=== PATIENT | female | born 1995 | race Caucasian/White ===

== ENCOUNTER 2017-08-03 23:01 | Inpatient (IN) | payer OTHER, MEDICAID ==
[2017-08-03] MEDS ORDERED: Sodium Chloride 0.9% 1,000 ML IV ONE (23:28)
[2017-08-03] MEDS ORDERED: Morphine Sulfate 2 mg/mL 1mL Syr ONE (23:36)
[2017-08-04] MEDS ORDERED: Morphine Sulfate 2 mg/mL 1mL Syr ONE ×3 (00:13→06:17)
[2017-08-04] MEDS ORDERED: Levofloxacin 500mg/100mL 500 MG/100 ML BAG IV ONE ×2 (01:27→01:29)
--- NOTE | 2017-08-04 02:46 | ED Physician Chart ---
ED Chief Complaint/HPI - Patient Information Date Seen:: 08/03/17 Time Seen:: 23:00 Chief Complaint:: Abdominal Pain History of Present Illness:: onset x 3 days of intermittent, crampy, generalized Abd. Pain, flank pain, N/V/D ; no H/As, neck pain, C/P, SOB, cough, A/C, fever, chills, or urinary s/s Allergies:: Allergies Allergy/AdvReac Type Severity Reaction Status Date / Time iodine Allergy Verified 09/06/16 10:39 Penicillins [PCN] Allergy Verified 09/06/16 10:39 tuna Allergy Uncoded 03/31/16 21:42 Vitals:: Vital Signs - 8 hr 08/03/17 08/04/17 23:05 01:07 Temp 97.6 F 98.2 F HR 88 81 RR 19 18 BP 142/81 133/79 O2 Sat % 96 97 Historian:: Patient, Family Member Review:: Nurse's Note Reviewed ED Review of Systems - Review of Systems General/Constitutional: No fever, No chills, No weight loss, No weakness, No diaphoresis, No edema, No loss of appetite Skin: No skin lesions, No rash, No bruising Head: No headache, No light-headedness Eyes: No loss of vision, No pain, No diplopia ENT: No earache, No nasal drainage, No sore throat, No tinnitus Neck: No neck pain, No swelling, No thyromegaly, No stiffness, No mass noted Cardio Vascular: No chest pain, No palpitations, No PND, No orthopnea, No edema Pulmonary: No SOB, No cough, No sputum, No wheezing GI: Nausea, Vomiting, Diarrhea, Pain, No melena, No hematochezia, No constipation, No hematemesis G/U: No dysuria, No frequency, No hematuria Calender Wind Up Helper: No vaginal discharge, No abnormal vaginal bleed, No contraction Musculoskeletal: No bone or joint pain, No back pain, No muscle pain Endocrine: No polyuria, No polydipsia Psychiatric: No prior psych history, No depression, No anxiety, No suicidal ideation Hematopoietic: No bruising, No lymphadenopathy Allergic/Immuno: No urticaria, No angioedema Neurological: No syncope, No focal symptoms, No weakness, No paresthesia, No headache, No seizure, No dizziness, No confusion, No vertigo ED Past Medical History - Past Medical History Obtainable: Yes Past Medical History: Asthma/COPD Family History: HTN Social History: Non Smoker, No Alcohol, No Drug Use, Single, Lives With Parents Surgical History: Appendectomy Psychiatricy History: None Medication: Reviewed Family Medical History - Family Member Mother History Unknown: Yes (The patient has a family history of both asthma and renal stones.) Ethnicity: Living Status: Still Living Hx Family Hypertension: Yes (grandfather) Hx Family Diabetes: (mother) ED Physical Exam - Physical Examination General/Constitutional: Awake, Well-developed, well-nourished, Alert, No distress, GCS 15, Non-toxic appearing, Ambulatory Head: Atraumatic Eyes: Lids, conjuctiva normal, PERRL, EOMI Skin: Nl inspection, No rash, No skin lesions, No ecchymosis, Well hydrated, No lymphadenopathy ENMT: External ears, nose nl, TM canals nl, Nasal exam nl, Lips, teeth, gums nl , Oropharynx nl, Tonsils nl Neck: Nontender, Full ROM w/o pain, No JVD, No nuchal rigidity, No bruit, No mass, No stridor Respiratory: Nl effort/Exclusion, Clear to Auscultation, No Wheeze/Rhonchi/Rales Cardio Vascular: RRR, No murmur, gallop, rubs, NL S1 S2, Carotid/Femoral/Distal pulses equal bilaterally GI: No organomegaly, No hernia, Normal BS's, Nondistended, No mass/bruits, No McBurney tenderness Other GI comments:: Abdomen: Soft with diffuse tenderness, especially at LLQ and RUQ : No CVA tenderness Extremities: No tenderness or effusion, Full ROM, normal strength in all extremities, No edema, Normal digits & nails Neuro/Psych: Alert/oriented, DTR's symmetric, Normal sensory exam, Normal motor strength, Judgement/insight normal, Mood normal, Normal gait, No focal deficits Misc: Normal back, No paraspinal tenderness ED Labs/Radiology/EKG Results - Lab Results Comments:: WBC: 12.0 - Radiology Results Comments:: NAD - EKG Interpretations EKG Time:: 23:58 Rate & Rhythm: 88; NSR Comments:: non-specific st-t changes ED Septic Shock - . Is Septic Shock (SBP<90, OR Lactate>4 mmol\L) present?: No - <6hrs of presentation: Vital Signs: Vital Signs - 8 hr 08/03/17 08/04/17 23:05 01:07 Temp 97.6 F 98.2 F HR 88 81 RR 19 18 BP 142/81 133/79 O2 Sat % 96 97 ED Reassessment (Disposition) - Reassessment Reassessment Condition:: Improved - Diagnosis Diagnosis:: Abdominal Pain; Diverticulitis; UTI; Leukocytosis; Cholecystitis; Intractable Pain; Vomiting - Aftercare/Follow up Instructions Aftercare/Follow-Up Instructions:: Counseled pt regarding lab results/diagnosis & need follow up, Counseled pt & family regarding lab results/diagnosis & need follow up - Patient Disposition Discharge/Transfer:: Acute Care w/in this hosp Accepting Physician:: Dr. Sheikh Time Called:: 199 Time Responded:: 02:00 Admitted to:: Med/Surg Spoke to:: Dr. Sheikh Admitting Medical Physician:: Dr. Sheikh Condition at Disposition:: Stable, Improved
[2017-08-04 03:12] LABS: ANION GAP 13.5 (7.0-16.0); BUN - UREA NITROGEN 14 mg/dL (7-25); BUN/CREATININE RATIO 23.3; CARBON DIOXIDE 22.4 mEq/L (21.0-31.0); CHLORIDE 103 mEq/L (98-107); CREATININE - SERUM 0.6 mg/dL (0.6-1.2); GLUCOSE 103 mg/dL (70-105); POTASSIUM SERUM 3.9 mEq/L (3.5-5.1); SODIUM SERUM 135 mEq/L (136-145)
[2017-08-04 03:13] LABS: ALB/GLOB RATIO 1.2 (1.0-1.8); ALKALINE PHOSPHATASE 77 U/L (34-104); AMYLASE SERUM 32 U/L (29-103); BILIRUBIN,TOTAL 0.4 mg/dL (0.3-1.0); CALCIUM SERUM 9.6 mg/dL (8.6-10.3); LIPASE 18 U/L (11-82); SGOT 18 U/L (13-39); SGPT/ALT 22 U/L (7-52)
[2017-08-04 03:14] LABS: HEMATOCRIT 38.3 % (41.0-60); HEMOGLOBIN 12.4 gm/dL (12-16); MEAN CORPUSCULAR HEMOGLOBIN 26.3 pg (27.0-31.0); MEAN CORPUSCULAR HGB CONC 32.5 pg (28.0-36.0); PLATELET COUNT 264 Th/cmm (150-400); RED BLOOD COUNT 4.72 Mil/cmm (3.80-5.10); RED CELL DISTRIBUTION WIDTH 13.1 % (11.5-20.0)
[2017-08-04 03:15] LABS: % BASOPHILS 0.4 % (0.0-2.0); % EOSINOPHILS 3.2 % (0.0-5.0); % LYMPHOCYTES 28.3 % (20.0-50.0); % MONOCYTES 5.8 % (2.0-10.0); % NEUTROPHILS 62.3 % (40.0-80.0); MEAN PLATELET VOLUME 9.4 fl; NEUTROPHILE ABSOLUTE 7.5 Th/cmm (1.8-8.0)
[2017-08-04 03:16] LABS: URINE COLOR YELLOW
[2017-08-04 03:17] LABS: URINE BILIRUBIN NEGATIVE (NEGATIVE); URINE BLOOD NEGATIVE (NEGATIVE); URINE GLUCOSE (UA) NEGATIVE (NEGATIVE); URINE KETONE NEGATIVE (NEGATIVE); URINE PH 6.5 (4.6 - 8.0); URINE PROTEIN NEGATIVE (NEGATIVE); URINE UROBILINOGEN 0.2 E.U./dL (0.2 - 1.0)
[2017-08-04 03:18] LABS: URINE BACTERIA FEW /hpf (NONE SEEN); URINE EPITHELIAL CELLS FEW /lpf (FEW); URINE RBC 0-2 /hpf (0-5); URINE WBC 0-2 /hpf (0-5)
[2017-08-04] MEDS ORDERED: Morphine Sulfate 2 mg/mL 1mL Syr IVP PRN (03:22)
[2017-08-04] MEDS: D5-0.45NS 1,000 ML IV SCH ×2 (03:30→18:36)
[2017-08-04] MEDS ORDERED: Lidocaine 2% Gel 5 mL TP ONE (07:15)
--- NOTE | 2017-08-04 08:17 | Diagnostic Imaging Report ---
CT abdomen and pelvis without intravenous contrast Indication: Abdominal pain Comparison: CT abdomen and pelvis on 09/06/2016, Technique: Axial images were obtained from the lung bases to the bilateral proximal femurs without IV contrast. Coronal reconstructions were made. total DLP: 745, CTDI14.4 FINDINGS: Hypoventilatory and atelectatic changes of the lung bases are noted. Assessment of the solid organs is limited due to lack of IV contrast. There is diffuse fatty infiltration of the liver. No evidence of focal lesions. No radiopaque gallstones identified. No focal splenic or pancreatic lesions. No focal adrenal lesions. No evidence of hydronephrosis or nephrolithiasis. Postsurgical changes of right lower quadrant are noted with what appears to be previous appendectomy. There is mild nonspecific inflammatory change along the pelvic fat planes. No evidence of bowel obstruction. Moderate amount stool is noted. No evidence of free air or free fluid.. The osseous structures demonstrate no acute abnormalities. IMPRESSION: Postsurgical changes in right lower quadrant with what appears to be evidence of previous appendectomy. Moderate stool throughout the colon. No evidence of bowel obstruction Mild nonspecific inflammatory changes along the pelvic fat planes. Please correlate with patient's clinical findings. If indicated ultrasound follow-up may be obtained for further assessment Hepatic steatosis.
--- NOTE | 2017-08-04 08:58 | Diagnostic Imaging Report ---
Ultrasound abdomen HISTORY: Abdominal pain COMPARISON: CT abdomen and pelvis performed the same day and abdominal ultrasound on 09/06/2016 Technique: Sonography of the abdomen was performed in multiple planes. FINDINGS: The liver demonstrates increased echogenicity and measures 18 cm. No evidence of focal lesions. No evidence of gallstones or gallbladder wall thickening. The common bile duct measures 5 mm. Evaluation of pancreas is limited due to bowel gas The right kidney measures 11.6 x 4.5 cm. The Left kidney measures 11.6 x 5.7 cm. No evidence of focal lesions or hydronephrosis. The spleen measures 11.7 cm. The visualized portions of abdominal aorta within normal limits in size. IMPRESSION: No evidence of gallstones. Mild hepatomegaly with increased echogenicity which may be due to underlying fatty infiltration. No evidence of hydronephrosis.
[2017-08-04] MEDS: metroNIDAZOLE 500mg/NS 100mL 500 MG/100 ML BAG IV SCH ×2 (12:17→22:00)
--- NOTE | 2017-08-04 14:02 | History & Physical ---
ADMIT DATE: 08/04/2017 PATIENT IDENTIFICATION: A 21-year-old female. CHIEF COMPLAINT: Abdominal pain on and off for the last 1 week, got worse over 3 days. HISTORY OF PRESENT ILLNESS: A 21-year-old moderately obese female with history of fatty liver, states that she used to get pain on and off, but never had a full attention and never worked up before, states that she started to have pain at the pelvic area on the right lower quadrant, which is continues to persist and radiated to the back. She went to urgent care and she was told that she has UTI. She was given some antibiotics. According to the patient that her pain never got better and continued to get worse to the extent that she was having abdominal pain associated with nausea and she also noticed that the pain was generalized involving the entire abdomen, sometimes it located to the upper part of the abdomen, sometimes to the right upper quadrant, but she said she required substantial amount of the pain medication. The patient was worked up in the Emergency Room noted to have leukocytosis with negative CT abdomen and pelvis, but her pain was out of proportion, never had any previous hospitalizations or any drug seeking behavior. The patient was advised to be admitted for further management. PAST MEDICAL HISTORY: Remarkable for fatty liver. MEDICATIONS AT HOME: Zofran, [place], and Cipro. ALLERGIES: The patient is allergic to iodine, penicillin. SOCIAL HISTORY: She is currently employed and work for [employer]. The patient does not smoke, drink, or street drug. No alcohol use, no street drug use. FAMILY MEDICAL HISTORY: Remarkable for hypertension. 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 Last LMP was 07/12/2017. She is 4, para 1. Her young child is 3-year-old. The patient denies any abnormal menstruation. Denies any abnormal vaginal bleeding or vaginal discharge. REVIEW OF SYSTEMS: The patient denies any headache, blurred vision, double vision, dysphagia, odynophagia, runny nose, stuffy nose. Does admit fever and chills. Denies any chest pain, shortness of breath, cough. Denies any hematemesis, hematuria, hematochezia, or melena. No dysuria, no seizure or syncopal episode. PHYSICAL EXAMINATION: GENERAL: Moderately overweight female, lying in the bed without any acute distress. VITAL SIGNS: Temperature 98.2, pulse 81, respiratory rate 18, blood pressure 133/79. HEENT: Normocephalic, atraumatic. Extraocular muscles are intact. Tongue was pink and coated. Poor dentition noted. No oral lesion, no exudate. No sinus tenderness. NECK: Supple, no JVD, no hepatojugular reflex. No lymphadenopathy, thyromegaly, or carotid bruit. HEART: Both heart sounds are regular. No S3, no S4, no murmur. CHEST: Lung equal in expansion, no wheezing, no crackles. ABDOMEN: Soft, epigastric and right upper quadrant tenderness noted. Bowel sounds are present. No palpable mass. EXTREMITIES: No edema, no cyanosis, no clubbing. Peripheral pulses +2. No calf tenderness noted. NEUROLOGIC: Limited, but nonfocal. AVAILABLE DIAGNOSTIC DATA: White count 12, hemoglobin of 12.4, platelet count of 264. BUN and creatinine is 14 and 0.6. SGOT, SGPT, ALTs are normal. Troponin is less than 0.01. Urine, specific gravity is more than 1.030, otherwise unremarkable. Urine test was also normal. CT scan of the abdomen and pelvis was done in the Emergency Room, which reported patient had post-surgical changes in the right lower quadrant for previous appendectomy, moderate stool throughout the colon, no evidence of bowel obstruction, mild nonspecific inflammatory changes along the pelvic fat planes noted, otherwise unremarkable. Abdominal ultrasound was also performed in the Emergency Room, which read by radiologist as no evidence of goals stone some, mild hepatomegaly with increased echogenicity, no evidence of hydronephrosis. CLINICAL IMPRESSIONS: 1. Intermittent diffuse abdominal pain for 1 week, getting worse, associated with nausea. CT scan of the abdomen and pelvis and abdominal ultrasound consistent with some inflammatory changes in the pelvic bed and hepatosplenomegaly. The patient's pain is out of proportions, needs further evaluation. 2. History of asthma. 3. Fatty liver. PLAN: 1. Admit this patient to Med/Surg floor. 2. NPO. 3. IV fluid. 4. Symptoms management. 5. GI and General Surgery consultation. 6. Empirically IV antibiotic. 7. Follow lab. 8. Follow consult recommendation. 9. Care plan reviewed and discussed with staff. JOB# [id number]
[2017-08-04] MEDS ORDERED: Magnesium Citrate 1.75 GM/300 mL Bottle PO ONE (22:48)
--- NOTE | 2017-08-05 00:08 | Consultation ---
DATE OF CONSULTATION: 08/04/2017 SURGICAL CONSULT REFERRING PHYSICIAN: Oleg Sheikh M.D. REASON FOR CONSULTATION: Abdominal pain. Thank you for referring this patient to me. HISTORY OF PRESENT ILLNESS: This is a 21-year-old female who claims abdominal pain for the last 3 days. It is crampy and intermittent mostly in the lower abdomen. She had some nausea, but no vomiting, no diarrhea. PAST MEDICAL HISTORY: She claims that she has had urinary tract infection ____ age 4 and has been recurring. Also, 2 years ago after a , she developed multiple kidney stones, which passed spontaneously. She claims that her family has history of hyperparathyroidism. This apparently has not been checked in the past. LABORATORY STUDIES: Today, the CBC shows WBC likely elevated to 12,000. Calcium is normal at 9.6. Ultrasound of the abdomen does not show any kidney stones and CT scan of the abdomen is otherwise unremarkable except for evidence of prior appendectomy. PHYSICAL EXAMINATION: GENERAL: The patient is morbidly obese with minimal tenderness in the lower abdomen more towards the right side. PLAN: We will check PTH and TSH. GI evaluation has been done and EGD and colonoscopy is scheduled for tomorrow. We will follow with you. JOB# [id number]
[2017-08-05] MEDS: Lactulose 10 Gm/15 mL 30mL UDC PO SCH ×3 (00:49→06:46)
[2017-08-05] MEDS ORDERED: Levofloxacin 500mg/100mL 500 MG/100 ML BAG IV SCH (01:00)
[2017-08-05] MEDS: metroNIDAZOLE 500mg/NS 100mL 500 MG/100 ML BAG IV SCH ×2 (05:21→12:01)
[2017-08-05 05:28] LABS: % BASOPHILS 0.7 % (0.0-2.0); % EOSINOPHILS 4.2 % (0.0-5.0); % LYMPHOCYTES 26.4 % (20.0-50.0); % MONOCYTES 6.3 % (2.0-10.0); % NEUTROPHILS 62.4 % (40.0-80.0); MEAN CELL VOLUME 81.6 fl (81-100); MEAN CORPUSCULAR HEMOGLOBIN 27.4 pg (27.0-31.0); MEAN CORPUSCULAR HGB CONC 33.6 pg (28.0-36.0); MEAN PLATELET VOLUME 8.7 fl; NEUTROPHILE ABSOLUTE 5.7 Th/cmm (1.8-8.0); PLATELET COUNT 231 Th/cmm (150-400); RED BLOOD COUNT 4.02 Mil/cmm (3.80-5.10); RED CELL DISTRIBUTION WIDTH 13.1 % (11.5-20.0)
[2017-08-05 05:29] LABS: HEMATOCRIT 32.8 % (41.0-60); WHITE BLOOD COUNT 9.3 Th/cmm (4.8-10.8)
[2017-08-05 05:43] LABS: INR 1.09 (0.5-1.4); PROTHROMBIN TIME (TEST) 11.4 SECONDS (9.5-11.5)
[2017-08-05 05:53] LABS: ALB/GLOB RATIO 1.3 (1.0-1.8); ALKALINE PHOSPHATASE 56 U/L (34-104); ANION GAP 6.8 (7.0-16.0); BILIRUBIN,TOTAL 0.5 mg/dL (0.3-1.0); BUN - UREA NITROGEN 11 mg/dL (7-25); BUN/CREATININE RATIO 15.7; CALCIUM SERUM 8.7 mg/dL (8.6-10.3); CARBON DIOXIDE 25.3 mEq/L (21.0-31.0); CHLORIDE 105 mEq/L (98-107); CREATININE - SERUM 0.7 mg/dL (0.6-1.2); GLUCOSE 98 mg/dL (70-105); POTASSIUM SERUM 4.1 mEq/L (3.5-5.1); SGOT 16 U/L (13-39); SGPT/ALT 18 U/L (7-52); SODIUM SERUM 133 mEq/L (136-145)
--- NOTE | 2017-08-05 07:02 | Consultation ---
DATE OF CONSULTATION: 08/04/2017 INPATIENT GI CONSULT REASON FOR CONSULTATION: Abdominal pain. CONSULTING PHYSICIAN: Dr. Sheikh. HISTORY OF PRESENT ILLNESS: The patient is a 21-year-old female with history of multiple kidney stones and urinary tract infections in the past, who comes into the hospital with right-sided abdominal pain for the past 3 days. The patient reports that she has been having constant right upper quadrant pain, but also radiating into the right lower quadrant as well and with associated symptoms of vomiting over the past 3 days. She did see urgent care yesterday and was told that she has a urinary tract infection and was given antibiotics; however, her vomiting and pain did not improve and thus, she decided to seek evaluation in the Emergency Room. Of note, the patient has been in the hospital before for this exact presentation and GI had been consulted previously. The patient reports that she was going to have endoscopy done, but then she decided to leave against medical advice. PAST MEDICAL HISTORY: Recurrent kidney stones and urinary tract infections, asthma, history of Meckel's diverticulum. PAST SURGICAL HISTORY: Meckel's diverticulum removal, appendectomy. FAMILY HISTORY: There is a history of congestive heart failure in her family. SOCIAL HISTORY: The patient lives with her family. Does not smoke or drink. ALLERGIES: There is a reported allergy to iodine and penicillin and Tuna. REVIEW OF SYSTEMS: A 12-point review of system was performed and negative other than the pertinent positives as mentioned in the history of present illness. CURRENT MEDICATIONS: Dulcolax, levofloxacin, Flagyl, tramadol. PHYSICAL EXAMINATION: VITAL SIGNS: Blood pressure 127/82, pulse 79 beats per minute, temperature 98.1, respiratory rate is 16, and oxygen saturation 90%. GENERAL: The patient is sitting upright in bed, alert and oriented x 3, in moderate distress. HEAD, EARS, EYES, NOSE, AND THROAT: There is no scleral icterus. Normocephalic and atraumatic head. Pupils are equal and reactive to light. Extraocular muscles are intact. Moist mucous membranes. NECK: Supple, no JVD, no thyromegaly, no lymphadenopathy. CHEST: Clear to auscultation bilaterally. CARDIOVASCULAR: S1 and S2 are present, regular rate and rhythm. ABDOMEN: Tender to palpation diffusely, mostly concentrated on the right side. No guarding. No rebound. Obese. EXTREMITIES: No pitting edema. Positive pulses. SKIN: No obvious jaundice or other rashes. LABORATORY DATA: White blood cell count 12, hemoglobin 12.4, platelet count 264. Sodium is 135, BUN 14, creatinine 0.6. AST 18, ALT 22, total bilirubin 0.4. Troponin is negative. test is negative. Lipase is 18. Urinalysis does not show any white blood cells or leukocyte esterase, but there are few bacteria noted. IMAGING: CT scan without contrast was performed and showed postsurgical changes in the right lower quadrant with what appears to be previous appendectomy, moderate stool in the colon, no evidence of bowel obstruction, mild nonspecific inflammatory changes throughout pelvic flat planes. An abdominal ultrasound was performed that did not show gallstones. IMPRESSION: This is a 21-year-old female with recurrent kidney infections and kidney stones, who presents to the hospital with right-sided abdominal pain and nausea and vomiting. 1. Nausea and vomiting. 2. Right-sided abdominal pain. 3. History of kidney stones and recurrent kidney infections. 4. History of Meckel's diverticulum and previous appendicitis. DISCUSSION: Her presentation does appear to be consistent with a possible urinary tract infection and/or kidney stone, although this was not seen on CT scan. Given that she does have continual symptoms of right abdominal pain in a young female, it may be reasonable to perform endoscopy to rule out as inflammatory bowel disease of the right colon and/or terminal ileum. The patient is in agreement with this and thus tomorrow, we will plan for EGD and colonoscopy to evaluate for inflammatory bowel disease specifically or any evidence of infectious colitis. RECOMMENDATIONS: 1. Plan for EGD and colonoscopy tomorrow as stated above. 2. We will send ESR and CRP as well. 3. Bowel preparation tonight with GoLYTELY. 4. Recommend continued antibiotics as she may indeed have a kidney infection or urinary tract infection as well. Further recommendations to follow endoscopy. Thank you for allowing me to participate in this patient's care. We will continue to follow. JOB# [id number]
[2017-08-05] MEDS ORDERED: Lactulose 10 Gm/15 mL 30mL UDC PO SCH (09:00)
--- NOTE | 2017-08-05 09:40 | Operative Report ---
DATE OF SURGERY: INPATIENT EGD AND COLONOSCOPY REPORT PROCEDURE PERFORMED: EGD with biopsy and colonoscopy with biopsy. ENDOSCOPIST: Ismael Tiwari MD PREOPERATIVE DIAGNOSES: Abdominal pain and nausea, vomiting. POSTOPERATIVE DIAGNOSES: Esophageal ulcer and mild proctitis. INDICATION: The patient is a 21-year-old female with history of recurrent kidney infections and kidney stones and chronic abdominal pain, who is admitted to the hospital with right-sided abdominal pain and nausea and vomiting. She is here for EGD and colonoscopy as she has never had these exams performed. CONSENT: Informed consent was obtained from the patient. The risks and benefits of this procedure was discussed and included but not limited to infection, bleeding, perforation, need for surgery, cardiopulmonary complications, missed pathology, and . The patient indicated her understanding of these risks and wished to go forward with the procedure and signed the consent form. ANESTHESIA: General anesthesia was used under the care of an anesthesiologist. PROCEDURE IN DETAIL: After the initiation of general anesthesia, the patient was placed in the left lateral decubitus position and a mouthpiece was inserted and secured. A gastroscope was introduced into the mouth and guided under direct visualization into the esophagus, stomach and duodenum. The scope was then slowly withdrawn making sure to examine the entire mucosa. Retroflexion was performed in the stomach prior to scope straightening and withdrawal. Next, the patient was repositioned into the colonoscopy position. A rectal exam was performed and was normal. A colonoscope was then introduced into the anus and guided under direct visualization into the level of the cecum, which was confirmed by the presence of the AO and IC valve, which were photographed. The scope was then slowly and systematically withdrawn making sure to carefully examine the entire colonic mucosa. Retroflexion was performed in the rectum prior to scope straightening and withdrawal from the body. There was no obvious sign of complication at the end of the procedure. FINDINGS: EGD PORTION: Esophagus: The GE junction was located at 35 cm from the incisors. There was a small ulcer at the GE junction that showed no sequelae of recent bleeding. This is likely due to the patient's retching over the past several days. There was no mass lesion otherwise in the esophagus. Stomach: The stomach including the gastric fundus, gastric body and antrum all appeared endoscopically normal. Biopsies were taken from the antrum to examine for any H. pylori via ASHWIN test. Duodenum: The duodenal bulb and second portion appeared endoscopically normal. COLONOSCOPY PORTION: The [place] bowel prep score was 2 in all segments of the colon. There was some solid stool that prevented all areas to be examined, although most of this could be suctioned. The terminal ileum was able to be intubated and appeared normal. Biopsies were taken from this area just to ensure that there was no quiescent Crohn's disease, although this is unlikely. The ascending colon, transverse colon, descending colon and sigmoid colon all appeared endoscopically normal. Within the rectum, there was some erythema and inflammation and this had the appearance of possible stasis ulcer or solitary rectal ulcer likely from history of constipation. This area was biopsied to ensure that there was no other pathology in this area. There were small internal hemorrhoids. IMPRESSION: 1. Small esophageal ulcer, likely due from retching. 2. Normal-appearing terminal ileum and colon. 3. Inflammation and proctitis in the rectum, likely due to constipation. DISCUSSION: There was no obvious finding on these exams to explain the patient's recurrent right-sided abdominal pain. I do suspect that she suffers from chronic constipation and would do well with the bowel regimen. RECOMMENDATIONS: 1. We will follow up the biopsies and treat any H. pylori if found. 2. The patient should be on PPI therapy for at least 2 months to ensure that the esophageal ulcer heals. 3. We will follow up the biopsies from the terminal ileum, but endoscopically this appeared normal and I doubt that there is any inflammatory bowel disease component to her pain. 4. The patient's pain is likely chronic, may be narcotic bowel syndrome versus recurrent kidney stones or infection. There also may be a stress or psychiatric component to this pain as is often the case with chronic abdominal pain. Thank you for allowing me to participate in this patient's care. Please call with any further questions. JOB# [id number]
--- NOTE | 2017-08-05 13:40 | General Progress Note ---
Subjective - Review of Systems Service Date: 08/05/17 Events since last encounter: egd AND COLONOSCOPY NOTED PTH AND TSH NORMAL WILL SIGN OFF Objective - Results Result Diagrams: 08/05/17 05:09 08/05/17 05:09 Recent Labs: Laboratory Last Values WBC 9.3 Th/cmm (4.8-10.8) D 08/05/17 05:09 Corrected WBC (auto) 12.0 Th/cmm (4.8-10.8) H 08/03/17 23:34 RBC 4.02 Mil/cmm (3.80-5.10) 08/05/17 05:09 Hgb 11.0 gm/dL (12-16) L 08/05/17 05:09 Hct 32.8 % (41.0-60) L D 08/05/17 05:09 MCV 81.6 fl (81-100) 08/05/17 05:09 MCH 27.4 pg (27.0-31.0) 08/05/17 05:09 MCHC Differential 33.6 pg (28.0-36.0) 08/05/17 05:09 RDW 13.1 % (11.5-20.0) 08/05/17 05:09 Plt Count 231 Th/cmm (150-400) 08/05/17 05:09 MPV 8.7 fl 08/05/17 05:09 Neutrophils % 62.4 % (40.0-80.0) 08/05/17 05:09 Lymphocytes % 26.4 % (20.0-50.0) 08/05/17 05:09 Monocytes % 6.3 % (2.0-10.0) 08/05/17 05:09 Eosinophils % 4.2 % (0.0-5.0) 08/05/17 05:09 Basophils % 0.7 % (0.0-2.0) 08/05/17 05:09 PT 11.4 SECONDS (9.5-11.5) 08/05/17 05:09 INR 1.09 (0.5-1.4) 08/05/17 05:09 PTT (Actin FS) 30.4 SECONDS (26.0-38.0) 08/05/17 05:09 Sodium 133 mEq/L (136-145) L 08/05/17 05:09 Potassium 4.1 mEq/L (3.5-5.1) 08/05/17 05:09 Chloride 105 mEq/L (98-107) 08/05/17 05:09 Carbon Dioxide 25.3 mEq/L (21.0-31.0) 08/05/17 05:09 Anion Gap 6.8 (7.0-16.0) L 08/05/17 05:09 BUN 11 mg/dL (7-25) 08/05/17 05:09 Creatinine 0.7 mg/dL (0.6-1.2) 08/05/17 05:09 Est GFR ( Amer) > 60.0 ml/min (>90) 08/05/17 05:09 Est GFR (Non-Af Amer) > 60.0 ml/min 08/05/17 05:09 BUN/Creatinine Ratio 15.7 08/05/17 05:09 Glucose 98 mg/dL (70-105) 08/05/17 05:09 POC Glucose 104 MG/DL (70 - 105) 08/05/17 06:21 Whole Bld Lactic Acid 1.23 mmol/L (0.60-1.99) 08/03/17 23:34 Calcium 8.7 mg/dL (8.6-10.3) 08/05/17 05:09 Total Bilirubin 0.5 mg/dL (0.3-1.0) 08/05/17 05:09 AST 16 U/L (13-39) 08/05/17 05:09 ALT 18 U/L (7-52) 08/05/17 05:09 Alkaline Phosphatase 56 U/L (34-104) 08/05/17 05:09 Troponin I < 0.01 ng/mL (0.01-0.05) L 08/03/17 23:34 Total Protein 6.1 gm/dL (6.0-8.3) 08/05/17 05:09 Albumin 3.4 gm/dL (3.7-5.3) L 08/05/17 05:09 Globulin 2.7 gm/dL 08/05/17 05:09 Albumin/Globulin Ratio 1.3 (1.0-1.8) 08/05/17 05:09 Amylase 32 U/L (29-103) 08/03/17 23:34 Lipase 18 U/L (11-82) 08/03/17 23:34 TSH 1.02 uIU/ml (0.34-5.60) 08/04/17 15:10 Serum , Qual NEGATIVE (NEGATIVE) 08/03/17 23:34 PTH Intact 47 pg/mL (15-65) 08/04/17 15:10 Urine Source CLEAN CATCH 08/03/17 23:14 Urine Color YELLOW 08/03/17 23:14 Urine Clarity CLEAR (CLEAR) 08/03/17 23:14 Urine pH 6.5 (4.6 - 8.0) 08/03/17 23:14 Ur Specific [place] > 1.030 (1.005-1.030) H 08/03/17 23:14 Urine Protein NEGATIVE mg/dL (NEGATIVE) 08/03/17 23:14 Urine Glucose (UA) NEGATIVE mg/dL (NEGATIVE) 08/03/17 23:14 Urine Ketones NEGATIVE mg/dL (NEGATIVE) 08/03/17 23:14 Urine Blood NEGATIVE (NEGATIVE) 08/03/17 23:14 Urine Nitrate NEGATIVE (NEGATIVE) 08/03/17 23:14 Urine Bilirubin NEGATIVE (NEGATIVE) 08/03/17 23:14 Urine Urobilinogen 0.2 E.U./dL (0.2 - 1.0) 08/03/17 23:14 Ur Leukocyte Esterase NEGATIVE (NEGATIVE) 08/03/17 23:14 Urine RBC 0-2 /hpf (0-5) 08/03/17 23:14 Urine WBC 0-2 /hpf (0-5) 08/03/17 23:14 Ur Epithelial Cells FEW /lpf (FEW) 08/03/17 23:14 Urine Bacteria FEW /hpf (NONE SEEN) 08/03/17 23:14 POC Ur Test Negative 08/03/17 23:20 - Physical Exam Vitals and I&O: Vital Signs Temp 97.4 F 08/05/17 12:27 Pulse 76 08/05/17 12:27 Resp 17 08/05/17 12:27 BP 109/65 08/05/17 12:27 Pulse Ox 98 08/05/17 12:27 Intake & Output 08/04/17 08/05/17 08/05/17 18:59 06:59 18:59 Intake Total 1100 200 Balance 1100 200 Weight (lbs) 101.718 kg Intake: Intake, IV Amount 1100 200 D5-0.45NS 1,000 ml @ 100 1000 mls/hr IV .Q10H [facility] Rx#: [id number] metroNIDAZOLE 500mg/NS 100 200 100mL 500 mg In 100 ml @ 100 mls/hr IV Q8HR [facility] Rx #:[id number] Active Medications: Current Medications Levofloxacin (Levaquin Pb) 500 mg in 100 mls @ 100 mls/hr IV Q24HR [facility] Stop: 10/04/17 00:59 Last Admin: 08/05/17 00:50 Dose: 100 mls/hr Dextrose/Sodium Chloride (D5-0.45ns) 1,000 mls @ 100 mls/hr IV .Q10H [facility] Stop: 10/03/17 03:29 Last Admin: 08/04/17 18:36 Dose: 100 mls/hr Metronidazole (Flagyl) 500 mg in 100 mls @ 100 mls/hr IV Q8HR [facility] Stop: 10/03/17 12:59 Last Admin: 08/05/17 12:01 Dose: 100 mls/hr Ketorolac Tromethamine (Toradol) 30 mg IVP Q8HR PRN PRN Reason: Severe Pain Stop: 10/03/17 11:12 Last Admin: 08/05/17 05:21 Dose: 30 mg Tramadol HCl (Ultram) 50 mg PO Q6HR PRN PRN Reason: Abdominal Pain Stop: 10/03/17 09:50 Last Admin: 08/05/17 08:53 Dose: 50 mg - Procedures Procedures: Procedures Procedure Code Date COLONOSCOPY AND BIOPSY 64099 08/04/17 CREATE EARDRUM OPENING 43557 12/29/99 EGD BIOPSY SINGLE/MULTIPLE 22875 08/04/17 EXCISION OF ILEUM, ENDO, DIAGN [id number] 08/04/17 EXCISION OF STOMACH, ENDO, DIAGN [id number] 08/04/17 MYRINGOTOMY W INTUBATION 20.01 12/29/99 Assessment/Plan - Problem List Patient Problems: All Active Problems Asthma exacerbation (Acute) J45.901
--- NOTE | 2017-08-05 21:50 | Discharge Summary ---
DATE OF DISCHARGE: 08/05/2017 PRINCIPAL DIAGNOSES: 1. Acute abdominal pain, etiology most likely secondary to severe gastritis. 2. Fatty liver. 3. Fecal stasis. 4. History of asthma. 5. Nonspecific inflammatory changes along the pelvic flat planes by CT scan workup to be done as an outpatient. 6. Overweight. 7. 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 BRIEF STATEMENT FOR THE REASON FOR ADMISSION: A 21-year-old female presented to Emergency Room for acute onset of abdominal pain for 1 week, which became worse over the period of last 3 days. The patient was evaluated and subsequently admitted to the hospital for further treatment. Please refer to my dictated H and P for further information. HOSPITAL COURSE: The patient was admitted to med/surg floor. The patient was kept n.p.o., IV fluid was given. GI and General Surgery consultation requested empirical IV, antibiotic was empirically started as well. IV fluid was given. The patient was seen by the client relationship consultant. The patient was taken to . The patient was seen by GI. The patient was taken to GI lab. The patient had an upper endoscopy, which revealed some gastritis. The patient underwent EGD and colonoscopy with biopsy, which did reveal some proctitis and some gastritis, but no other etiology was noted. The patient was started to feel better after giving conservative management. The patient was placed on full liquid diet which was advanced to regular as tolerated and the patient is discharged home. I have advised the patient to see her [facility] for followup on her proctitis along with gastritis and changes on CT scan. The patient will be followed by her primary care physician in 1 week. JOB# [id number]
--- NOTE | 2017-08-08 15:16 | Pathology Report ---
[facility]# [id number]
--- NOTE | 2017-08-08 15:21 | Pathology Report ---
[id number] Collection Date: 08/05/2017 Surgeon: Dr. Criss Tiwari Specimen Description: 1. Biopsy of terminal ileum 2. Random left colon biopsy Gross Description: Part I: Received in formalin are two green soft tissue fragments ranging from 0.1 to 0.2 cm in greatest dimension. Totally submitted in one cassette labeled A. Gross Description: Part II: Received in formalin are multiple green soft tissue fragments ranging from 0.1 to 0.2 cm in greatest dimension. Totally submitted in one cassette labeled B. Microscopic Description: Part I: The histologic sections show benign intestinal mucosa with mild chronic inflammation present, consisting of lymphocytes and plasma cells. The intestinal villi are intact and show no apparent abnormalities. Diagnosis: Part I: Mild nonspecific chronic inflammation, terminal ileum biopsy. Microscopic Description: Part II: The histologic sections show benign colonic mucosa with mild chronic inflammation present, consisting of slightly increased numbers of lymphocytes and plasma cells. There is no evidence for ulceration nor atypia. Only occasional intraepithelial lymphocytes are appreciated that are seen in less than 15% of the epithelial cells (no evidence for microscopic colitis). Diagnosis: Part II: Mild nonspecific chronic inflammation (random left colon biopsy). JOB# [id number]
== END 2017-08-05 15:00 | disposition home or self-care (01) | DRG 392 ==
LOC: ER 23:01 → MSI 08-04 03:20
PROVIDERS: ADMIT Internal Medicine; ATTEND Internal Medicine
PROC: 0DB68ZX Excision of Stomach, Via Natural or Artificial Opening Endoscopic, Diagnostic (ICD-10-PCS; principal; 2017-08-05)
PROC: 0DBB8ZX Excision of Ileum, Via Natural or Artificial Opening Endoscopic, Diagnostic (ICD-10-PCS; 2017-08-05)
PROC: 0DBP8ZX Excision of Rectum, Via Natural or Artificial Opening Endoscopic, Diagnostic (ICD-10-PCS; 2017-08-05)
DX: K29.70 Gastritis, unspecified, without bleeding (principal); R65.10 Systemic inflammatory response syndrome (SIRS) of non-infectious origin without acute organ dysfunction; K76.0 Fatty (change of) liver, not elsewhere classified; E66.01 Morbid (severe) obesity due to excess calories; K81.9 Cholecystitis, unspecified; R16.2 Hepatomegaly with splenomegaly, not elsewhere classified; K22.10 Ulcer of esophagus without bleeding; K57.92 Diverticulitis of intestine, part unspecified, without perforation or abscess without bleeding; N39.0 Urinary tract infection, site not specified; K62.89 Other specified diseases of anus and rectum; G89.29 Other chronic pain; J45.909 Unspecified asthma, uncomplicated; Z88.0 Allergy status to penicillin; Z90.49 Acquired absence of other specified parts of digestive tract; Z82.49 Family history of ischemic heart disease and other diseases of the circulatory system; Z91.041 Radiographic dye allergy status
CPT/HCPCS: 36415-UA; 76700-TC; 80053-TC; 81001-TC; 81025-TC; 82150-TC; 82948-90; 83605; 83690-TC; 83970-90; 84443-TC; 84484-TC; 84703-TC; 85025-TC; 85610-TC; 87086-90; 87338-TC; 88304-TC; 90799; 93005; 96374; 96375; J1885; J1956; J2001; J2270; J2405; J2704; J7030; Z7506; Z7610